=== PATIENT | male | born 1975 ===

== ENCOUNTER 2016-10-12 09:45 | Emergency (ER) | payer OTHER ==
--- NOTE | 2016-10-15 17:50 | ER ---
ADMIT: 10/12/2016 RM/LOC: ER [facility] MR#: [id number] [facility] [address] [place], [place] [id number] VIANEY UGALDE [address] [place] [id number] Emergency Room Report SEX: M AGE: 41 : 1975 DATE: 10/12/2016 ADDENDUM: This patient comes into the ER. He is currently in shelter. He was jumping down off a bunk bed and sprained his right ankle and right foot. On x- ray, the ankle has no fractures, but he does have a distal right 5th metatarsal fracture. He was placed in an Nicholas wrap and a boot to be non- weightbearing. Ice and elevate. He was given two Pearson here in the ER, and he is to follow up with Dr. Bond next week. Please see my T-sheet. DIAGNOSES: 1. Right ankle sprain. 2. Fracture of the right 5th metatarsal. MELISSA Navarro / Simon Loredo MD / modl JOB #: [id number] CC: Simon Loredo MD, Attending Physician Saulo Bond MD, Family Physician
== END 2016-10-12 11:15 ==
LOC: ER 09:45
DX: S92.354A Nondisplaced fracture of fifth metatarsal bone, right foot, initial encounter for closed fracture (principal); S93.401A Sprain of unspecified ligament of right ankle, initial encounter; F17.210 Nicotine dependence, cigarettes, uncomplicated; Z79.899 Other long term (current) drug therapy; Y93.39 Activity, other involving climbing, rappelling and jumping off